=== PATIENT | male | born 1980 | race Caucasian/White ===

== ENCOUNTER 2022-03-22 10:17 | Emergency (ER) | payer BC ==
[2022-03-22] MEDS ORDERED: ACETAMINOPHEN 500 MG TAB ONE (10:51)
[2022-03-22] MEDS ORDERED: IBUPROFEN 200 MG TAB PO ONE (10:51)
--- NOTE | 2022-03-22 11:48 | RAD REPORT ---
EXAM DESCRIPTION: Ribs Right - 03/22/2022 11:12 am CLINICAL HISTORY: Right rib pain FINDINGS: No fracture is seen
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
[2022-03-22 12:37] VITALS: TEMP 97.3
[2022-03-22 12:40] VITALS: BP 106/89; O2SAT 100
== END 2022-03-22 12:12 | disposition home or self-care (01) ==
LOC: ER 10:17
DX: R07.9 Chest pain, unspecified (principal); F41.9 Anxiety disorder, unspecified
CPT/HCPCS: 99284